=== PATIENT | female | born 1955 | race Caucasian/White ===

== ENCOUNTER 2016-09-01 19:25 | Inpatient (IN) | payer OTHER, MEDICAID ==
[~2016-09-01 19:25] MED LIST: ATORVASTATIN 10 MG TAB PO SCH
--- NOTE | 2016-09-01 20:10 | EDPRACDOC ---
- General Information Chief Complaint: Shoulder Pain Stated Complaint: SHOB Time Seen by Provider: 09/01/16 19:35 Information Source: Patient Mode of Arrival: Ambulance Home Medications: Home Medications Albuterol Sulfate [Ventolin Hfa] 1 - 2 puff INH Q4H PRN 06/10/14 Clopidogrel Bisulfate [Plavix] 75 mg PO HS 06/10/14 Doxepin HCl 50 mg PO HS 06/10/14 Fenofibrate 160 mg PO HS 06/10/14 Fluoxetine HCl [Prozac] 20 mg PO HS 06/10/14 Amlodipine Besylate [Norvasc] 10 mg PO QHS 06/22/15 Abacavir/Dolutegravir/Lamivudi [Triumeq Tablet] 1 tab PO QHS 07/25/16 Gabapentin Enacarbil [Horizant] 600 mg PO BID 07/25/16 Ondansetron [Zofran Odt] 4 mg PO Q6H #30 tab.rapdis 07/25/16 Ranitidine [Zantac] 150 mg PO BID 07/25/16 Rosuvastatin Calcium [Crestor] 10 mg PO QHS 07/25/16 Allergies/Adverse Reactions: Allergies Allergy/AdvReac Type Severity Reaction Status Date / Time morphine Allergy See Verified 07/25/16 12:04 Comments - History of Present Illness Onset: 1600 HPI: PATIENT PRESENTS C/O LEFT SIDED SHOULDER PAIN THAT RADIATES TO CHEST. NO SOB. WORSE WITH PALPATION. DENIES WORSE WITH MOVEMENT. BEGAN AT REST. NORMAL PAIN MEDICATION DOES NOT HELP. STATES SHE HAS A HX OF STENT IN ONE LEG. PLACED ON PLAVIX. PATIENT HAS HAD EPISODES OF VOMITING FOR WEEKS. STOPPED B/P MEDS AND PLAVIX 1 MONTH AGO. Description: Reports: At Rest Location: Reports: Left, Anterior Circumstances: Reports: No Trauma Relevant History: Reports: None Tetanus Up To Date?: Yes Dominant Hand: Right Pain Severity: Mild Able to Move Shoulder?: Yes Associated Signs & Symptoms: Reports: Chest pain - Treatment Prior to ED Arrival Reported Medications/Treatment [facility] Treatment BLS ED Past Medical History - History Reviewed Yes Nurses notes reviewed and agree except as marked Travel Outside of [place] in the Last 3 Months?: No - Patient Medical History Neurological History: Reports: Seizures (last one- October 2012) Cardiac History: Reports: Hypertension, Hypercholesterolemia Respiratory History: Reports: Asthma, COPD GI/ History: Reports: Renal Disease Psychological History: Reports: Depression, Bipolar Disorder. Denies: Substance Use Disorder Systemic History: Reports: HIV (see note below). Denies: Cancer Surgical History: Reports: Tonsillectomy/Adnoidectomy - Family Medical History Reports: Cardiac Disorders. Denies: Cancer (negative for colon cancer) - Social Medical History Smoking Status: Heavy tobacco smoker (5 or more cigarettes/day or daily pipe/ cigar) Social History: Denies: Substance Use Disorder Lives With: Family Lives In: Home EDM Review of Systems - Review of Systems ROS Negative Except as Marked: Yes All systems reviewed and were negative except as marked Constitutional: No Symptoms Reported. negative: Fever, Chills, Weakness, Fatigue, Loss of Appetite Eyes: No Symptoms Reported. negative: Redness, Blurred Vision, Double Vision, Discharge, Pain, Light Sensitive, Photophobia Ears: No Symptoms Reported. negative: Pain, Hearing Loss, Drainage, Ear Pulling Throat: No Symptoms Reported. negative: Pain, Swelling Nose: No Symptoms Reported. negative: Congestion, Bleeding, Discharge, Injection, Swelling, Deformity, Ecchymosis, Tender, Abrasion, Laceration Mouth: No Symptoms Reported. negative: Pain, Drooling Respiratory: No Symptoms Reported. negative: Cough, Brassy Cough, Barky Cough, Shortness of Breath, Wheezing, Hemoptysis Cardiovascular: Chest Pain. negative: Cyanosis, Edema, Orthopnea, Palpitations , PND, Syncope, Skin Mottling Gastrointestinal: No Symptoms Reported. negative: Pain, Constipation, Nausea, Vomiting, Diarrhea, Melena, Formula Intolerance Genitourinary: No Symptoms Reported. negative: Dysuria, Hematuria, Frequency, Discharge, Bleeding, Testicular Pain, Neurological: No Symptoms Reported. negative: Headache, Dizziness, Seizure, Numbness, Weakness, Speech Difficulty, Gait Difficulty Musculoskeletal: No Symptoms Reported. negative: Neck, Chestwall, Ribs, Back, Shoulder, Arm, Elbow, Forearm, Wrist, Hand, Pelvis, Hip, Femur, Knee, Leg, Ankle , Foot Integumentary: No Symptoms Reported. negative: Itching, Rash, Bruising, Wound Allergic/Immunologic: No Symptoms Reported. negative: Hives, Itching Hematologic: No Symptoms Reported. negative: Lymphadenopathy, Easy Bruising, Easy Bleeding Endocrine: No Symptoms Reported. negative: Weight Gain, Weight Loss Psychiatric: No Symptoms Reported. negative: Anxiety, Depression, Hallucinations, Insomnia, Suicidal - Physical Exam Constitutional: Alert (Awake), Distress (MODERATE) Oriented to: Time, Person, Place Last recorded Vital Signs: Last Vital Signs Temp 98.2 F 09/01/16 19:42 Pulse 96 09/01/16 19:42 Resp 20 09/01/16 19:42 BP 160/100 09/01/16 19:42 Pulse Ox 95 09/01/16 19:42 Oxygen Pulse Oxygen Saturation 95 O2 Device Room Air Oxygen Flow Rate Fraction of Inspired Oxygen ( FIO2) - HEENT Head: Normal ( normocephalic) Eye Exam: Normal (PERRL, EOMI, Sclera white) Oropharynx: Normal (Pharynx:Moist without exudate,Gums-no swelling) Tympanic Membrane: Normal ENT EAC: Normal TMJ: Normal Nose: No Symptoms Reported (septum midline) Neck: Normal (FROM, trachea at midline) - Respiratory/Cardiovascular Respiratory: Normal - CTA (BBS clear to auscultation without adventitious sounds ) Cardiovascular: Tachycardia - GI Auscultation: Normal (NABS) Palpation: Normal (Soft,No rebound or guarding, non distended) Tenderness: Non tender Weiner's Sign: Negative - Bladder: Normal - Musculoskeletal Back: Normal (Non-Tender) Extremities: Normal (Normal tone, Pulses 2+ No cyanosis or edema, FROM) - Integumentary Skin: Normal, Warm, Dry Lymphatics: Normal (no adenopathy) - Neurologic Memory Impaired: Normal Motor Function: Normal (Normal tone, Pulses 2+ No cyanosis or edema, FROM) Cranial Nerve: Normal (CN II-X11 intact sensation, strength 5/5) Cerebellar: Normal Mood Description: Anxious Thought: Coherent Perception: Normal - Results 09/01/16 20:25 09/01/16 20:25 - EKG EKG #1 EKG Time: 19:57 -: Yes EKG interpreted by me Rate: bpm: 79 [place]: Normal Rhythm: NSR Block: None Hypertrophy: None ST: Inf, Ischemia (ST DEPRESSION INFERIOR) - Departure Yes I personally saw and evaluated the patient. Disposition: Admit IP To This Hospital Condition: Stable Final Diagnosis: Non-STEMI (non-ST elevated myocardial infarction) Education/Counseling Given To: Patient Education/Counseling Given Regarding: Diagnosis, Treatment, Prognosis Referrals: Kerry Pelayo PA [Primary Care Provider] - One Week Prescriptions: No Action Fluoxetine HCl [Prozac] 20 mg PO HS Doxepin HCl 50 mg PO HS Clopidogrel Bisulfate [Plavix] 75 mg PO HS Albuterol Sulfate [Ventolin Hfa] 1 - 2 puff INH Q4H PRN PRN Reason: SHORTNESS OF BREATH Fenofibrate 160 mg PO HS Amlodipine Besylate [Norvasc] 10 mg PO QHS Rosuvastatin Calcium [Crestor] 10 mg PO QHS Ranitidine [Zantac] 150 mg PO BID Gabapentin Enacarbil [Horizant] 600 mg PO BID Abacavir/Dolutegravir/Lamivudi [Triumeq Tablet] 1 tab PO QHS Ondansetron [Zofran Odt] 4 mg PO Q6H #30 tab.enedinadis Decision to Admit Time: 21:05 Decision to admit date: 09/01/16 Decision to admit: from ED - Physician Consulted Cardiology Time Called: 21:06 Provider Called: Viktor Hooker Time Heavy Truck Technician Returned Call: 21:06
[2016-09-01 20:35] LABS: AUTOMATED BASOPHIL 0.7 % (0-2); AUTOMATED EOSINOPHIL 0.8 % (0-5); AUTOMATED LYMPH 14.9 % (17-44); AUTOMATED MONOCYTE 4.4 % (3-10); AUTOMATED NEUTROPHIL 79.2 % (45-76); MPV 10.3 fL (7.4-10.4)
[2016-09-01 20:49] LABS: PARTIAL THROMB. TIME 29.3 SEC (22-35); PT-INR 1.2
[2016-09-01 20:50] LABS: BLOOD UREA NITROGEN 13 MG/DL (7-17); CALCIUM 9.2 MG/DL (8.4-10.2); CALCULATED OSMOLALITY 269 MOs/Kg (270-290); CHLORIDE 106 mEq/L (98-107); GLUCOSE 117 MG/DL (70-99); SODIUM LEVEL 139 mEq/L (137-146); TOTAL PROTEIN 7.7 G/DL (6.3-8.2)
--- NOTE | 2016-09-01 20:58 | DIRPT ---
CLINICAL DATA: Shortness of breath. EXAM: PORTABLE CHEST - 1 VIEW COMPARISON: Chest and rib radiographs 04/05/2015. FINDINGS: The heart is enlarged. Asymmetric interstitial prominence on the right likely reflects edema. There no definite effusions. No focal airspace consolidation is present. The visualized soft tissues and bony thorax are unremarkable. IMPRESSION: 1. Cardiomegaly and edema suggesting congestive heart failure. 2. No focal airspace consolidation. Electronically Signed By: Roque Segura M.D. On: 09/01/2016 20:55
[2016-09-01] MEDS ORDERED: ENOXAPARIN 100 MG PFS SQ ONE (21:09)
[2016-09-01] MEDS ORDERED: ASPIRIN (CHEWABLE) 81 MG TAB PO ONE (21:09)
[2016-09-01] MEDS ORDERED: METOPROLOL TARTRATE 25 MG TAB PO ONE (21:10)
[2016-09-01 21:48] LABS: ALL NEG? NO
[2016-09-01] MEDS: NITROGLYCERINE 0.4 MG TAB SL SCH ×3 (21:52→22:18)
--- NOTE | 2016-09-01 21:53 | PCM.CARDCO ---
Consultation Date: 09/01/16 Requesting Physician: Spencer Giraldo Fiber Optic Assembler: Viktor Hooker Consult Reason: Chest Pain - History of Present Illness Patient is a 60 years old woman HIV positive with COPD who presented to the hospital today with chief complaint of weakness and left shoulder pain. Pain is worse with moving or shorter she did not allowed me to touch her shoulder because so painful she does have quite significant electrocardiographic changes however I was able to pull out her electrocardiogram from 2 years ago and does a looking very similar. Interestingly her troponin I became abnormal and that is why my valve when she was called. Again pain that she described look completely noncardiac is located in left shoulder worse with pressing the shoulder worse when moving her shoulder. There is no injury to this area there is no skin changes. She never had any heart trouble however many years ago she did have stent placed in the right lower extremities because of some narrowing. She continues to smoke. She quit drinking alcohol and she quit using cocaine in 2012. She smokes half to 1 pack per day. Her ability to exercise is limited because of chronic back problem in the matter of fact just couple weeks ago she was in our emergency room because of back problem. - Past Medical and Surgical History Cardiac History: Reports: Hypertension, Hypercholesterolemia, Other Respiratory History: Reports: Asthma, COPD GI/ History: Reports: Renal Disease Systemic History: Reports: HIV (see note below). Denies: Cancer Psychological History: Reports: Depression, Bipolar Disorder. Denies: Substance Use Disorder Neurological History: Reports: Seizures (last one- October 2012) Past Surgical History: Reports: Tonsillectomy/Adnoidectomy Allergies morphine Allergy (Verified 07/25/16 12:04) See Comments Home Medications Albuterol Sulfate [Ventolin Hfa] 1 - 2 puff INH Q4H PRN 06/10/14 Clopidogrel Bisulfate [Plavix] 75 mg PO HS 06/10/14 Doxepin HCl 50 mg PO HS 06/10/14 Fenofibrate 160 mg PO HS 06/10/14 Fluoxetine HCl [Prozac] 20 mg PO HS 06/10/14 Amlodipine Besylate [Norvasc] 10 mg PO QHS 06/22/15 Abacavir/Dolutegravir/Lamivudi [Triumeq Tablet] 1 tab PO QHS 07/25/16 Gabapentin Enacarbil [Horizant] 600 mg PO BID 07/25/16 Ondansetron [Zofran Odt] 4 mg PO Q6H #30 tab.rapdis 07/25/16 Ranitidine [Zantac] 150 mg PO BID 07/25/16 Rosuvastatin Calcium [Crestor] 10 mg PO QHS 07/25/16 - Social History Travel Outside of [place] in the Last 3 Months?: No Smoking Status: Heavy tobacco smoker (5 or more cigarettes/day or daily pipe/ cigar) Social History: Denies: Substance Use Disorder - Family History Reports: Cardiac Disorders. Denies: Cancer (negative for colon cancer) - Review of Systems Constitutional: No Symptoms Reported. negative: Fever, Chills, Weakness, Fatigue, Loss of Appetite - Physical Exam Constitutional: Alert (Awake), Distress (MODERATE) Oriented to: Time, Person, Place Exam: Last Vital Signs Temp 98.2 F 09/01/16 19:42 Pulse 82 09/01/16 21:10 Resp 20 09/01/16 21:10 BP 158/73 09/01/16 21:10 Pulse Ox 94 09/01/16 21:10 Intake & Output 09/01/16 09/01/16 09/01/16 07:59 15:59 23:59 Patient's weight 67.132 kg - HEENT Head: Normal ( normocephalic) Eye: Normal (PERRL, EOMI, Sclera white) Oropharynx: Normal (Pharynx:Moist without exudate,Gums-no swelling) Tympanic Membrane: Normal ENT EAC: Normal TMJ: Normal Nose: No Symptoms Reported (septum midline) - Respiratory/Cardiovascular Respiratory: Normal - CTA (BBS clear to auscultation without adventitious sounds ) - GI Auscultation: Normal (NABS) Palpation: Normal (Soft,No rebound or guarding, non distended) Tenderness: Non tender - Musculoskeletal Back: Normal (Non-Tender) Extremities: Normal (Normal tone, Pulses 2+ No cyanosis or edema, FROM) - Integumentary Skin: Normal, Warm, Dry Lymphatics: Normal (no adenopathy) - Neurologic Memory Impaired: Normal Cerebellar: Normal Mood Description: Anxious Thought: Coherent Perception: Normal - Other Exam Other Exam Findings: General Appearance: Well developed. Well nourished. In no acute distress.Somewhat cachectic- looking Lungs: Chest was not overinflated. Clear to auscultation. Poor air entry Cardiovascular: Jugular Venous Distention: JVD not increased. Heart Rate And Rhythm: Normal. Heart Sounds: Normal. Murmurs: No murmurs were heard. Carotid Arteries: Carotid pulses were normal. No bruit in the carotid artery. Edema: Not present. Lower extremities pulses in her feet are palpable however capillary refill is decent. Musculoskeletal System: General/bilateral: No cyanosis of the fingers. Neurological: Oriented to time, place, and person. Nails: No clubbing of the fingernails. - Lab Results Laboratory Tests 09/01/16 09/01/16 09/01/16 20:25 20:25 20:25 WBC 8.7 RBC 4.71 Hgb 15.3 Hct 44.8 MCV 95 MCH 32.5 H MCHC 34.2 RDW 13.5 Plt Count 167 MPV 10.3 Neut % (Auto) 79.2 H Lymph % (Auto) 14.9 L Cherry % (Auto) 4.4 Eos % (Auto) 0.8 Baso % (Auto) 0.7 Absolute Neuts (auto) 6.87 Absolute Lymphs (auto) 1.22 PT 12.7 H INR 1.2 APTT 29.3 Sodium 139 Potassium 4.6 Chloride 106 Carbon Dioxide 21 L Anion Gap 17 H BUN 13 Creatinine 1.10 H Estimated GFR (MDRD) 51 L Glucose 117 H Calculated Osmolality 269 L Calcium 9.2 Total Bilirubin 0.6 AST 42 H ALT 20 Alkaline Phosphatase 111 Troponin I 2.61 H* Total Protein 7.7 Albumin 4.2 - Diagnostic Findings Electrocardiogram showed normal sinus rhythm left atrium enlargement, significant ST segment depression inferior lateral leads. - Assessment/Plan (1) Troponin I above reference range R79.89 - OTHER SPECIFIED ABNORMAL FINDINGS OF BLOOD CHEMISTRY Acute Present on Admission: Yes Comment: This is apprising finding. Her symptoms are very noncardiac pain in left shoulder which is worse with moving her shoulder however she does have some significant EKG changes but compared with old EKG does a very similar. I think she need to be admitted for observation clarification of this problem. I will put her on aspirin Lovenox as well as small dose of beta-jocelin. Will collect cardiac enzymes as well as troponin. Tomorrow morning to decide which way to evaluate her for coronary artery disease. Obviously if troponin I will be significantly elevated and may even cardiac catheterization will be warranted. (2) Atypical chest pain R07.89 - OTHER CHEST PAIN Acute Comment: Really very atypical in the left shoulder worse with moving her shoulder. But her troponin I is abnormal which obviously rise or concerns. (3) Smoking F17.200 - NICOTINE DEPENDENCE, UNSPECIFIED, UNCOMPLICATED Acute Comment: She must quit smoking. (4) HIV disease B20 - HUMAN IMMUNODEFICIENCY VIRUS [HIV] DISEASE Chronic Comment: Apparently she takes her medication on the regular basis she does not her CD4 cell count was 850 very slow was 50 Plan: Lady with very atypical story with abnormal EKG as baseline. Troponin I abnormal she be admitted to the hospital cardiac enzymes will be connected decision will be made in the morning which way to proceed in terms of evaluate her for coronary artery disease
[2016-09-01 21:55] LABS: MDMA* NEG (NEGATIVE); METHAMPHETAMINES NEG (NEGATIVE); OXYCODONE NEG (NEGATIVE)
[2016-09-01] MEDS ORDERED: NITROGLYCERINE 0.4 MG TAB SL PRN ×2 (21:58→23:51)
[2016-09-01] MEDS ORDERED: Pharmacy Order Set Alert SCH (22:00)
--- NOTE | 2016-09-01 23:52 | HISTPHYS ---
- Chief Complaint chest and shoulder pain - History of Present Illness PRIMARY CARE PROVIDER: Kerry Pelayo HPI: The patient is a 50-year-old woman with COPD, HIV, hypertension, hyperlipidemia who presents with chest and shoulder pain along with shortness of breath. She has had severe nausea and vomiting lately, and is having trouble keeping anything down. Onset: Duration: intermittent. Location: Left chest and substernal. Radiation: left shoulder. Character: 05/13. Heaviness. Alleviated by: Nothing. Exacerbated by: Nothing. Associated Symptoms: Shortness of breath. Left shoulder pain. Palpitations. Cough and wheezing intermittently. Has had abdominal pain (epigastric), nausea, vomiting, diarrhea. No constipation or bloody stool. Treatments: none at home except usual medications. - Medical History Cardiac History: Reports: Hypertension, Hypercholesterolemia (and peripheral arterial disease - required stent - aorto-femoral bypass), Other Respiratory History: Reports: Asthma, COPD GI/ History: Reports: Renal Disease Systemic History: Reports: HIV (see note below). Denies: Cancer Neurological History: Reports: Seizures (last one- October 2012) Psychological History: Reports: Depression, Bipolar Disorder. Denies: Substance Use Disorder - Surgical History Reports: Tonsillectomy/Adnoidectomy, Other (Aorto-femoral bypass due to peripheral arterial disease in leg.) - Medictions/Allergies Allergies morphine Allergy (Verified 07/25/16 12:04) See Comments Current Medication List: Reviewed Home Medications Albuterol Sulfate [Ventolin Hfa] 1 - 2 puff INH Q4H PRN 06/10/14 Clopidogrel Bisulfate [Plavix] 75 mg PO HS 06/10/14 Doxepin HCl 50 mg PO HS 06/10/14 Fenofibrate 160 mg PO HS 06/10/14 Fluoxetine HCl [Prozac] 20 mg PO HS 06/10/14 Amlodipine Besylate [Norvasc] 10 mg PO QHS 06/22/15 Abacavir/Dolutegravir/Lamivudi [Triumeq Tablet] 1 tab PO QHS 07/25/16 Gabapentin Enacarbil [Horizant] 600 mg PO BID 07/25/16 Ondansetron [Zofran Odt] 4 mg PO Q6H #30 tab.rapdis 07/25/16 Ranitidine [Zantac] 150 mg PO BID 07/25/16 Rosuvastatin Calcium [Crestor] 10 mg PO QHS 07/25/16 - Family History Reports: Cardiac Disorders. Denies: Cancer (negative for colon cancer) - Social History Travel Outside of [place] in the Last 3 Months?: No Smoking Status: Heavy tobacco smoker (5 or more cigarettes/day or daily pipe/ cigar) Social History: Denies: Alcohol Use, Substance Use Disorder - Review of Systems GENERAL: No Fever, chills, or diaphoresis. Positive for fatigue/malaise. HEENT: No nasal discharge or bleeding. No throat pain or swelling. No eye pain or eye redness. RESPIRATORY: Occasional cough, wheezing. Positive for shortness of breath. CARDIOVASCULAR: Chest pain and palpitations. GI: Has had abdominal pain (epigastric), nausea, vomiting, diarrhea. No constipation or bloody stool. NEUROLOGICAL: No headache or focal weakness. INTEGUMENT: no rashes, itching, or lesions. LYMPHATIC SYSTEM: no lymph node swelling or pain. MUSCULOSKELETAL: Joint pains including L shoulder. No joint swelling. GENITOURINARY: No dysuria or hematuria. ENDOCRINE: No polyuria or polydipsia. HEME: No chronic anemia, bleeding, or easy bruising. - Physical Exam Vital Signs: Initial Vitals Temperature 98.2 F 09/01/16 19:42 Pulse Rate 96 09/01/16 19:42 Respiratory Rate 20 09/01/16 19:42 Blood Pressure 160/100 09/01/16 19:42 Pulse Oxygen Saturation 95 09/01/16 19:42 - Other Exam Other Exam Findings: GENERAL: Ill-appearing, well nourished, in acute distress. HEENT: Normocephalic, atraumatic; pupils equal and round. Nares patent, without discharge or bleeding. No oropharyngeal lesions or erythema. Mucous membranes are dry. NECK: is supple, no masses, trachea midline. RESPIRATORY: Clear to auscultation bilaterally. Chest wall movements are symmetric. No use of accessory muscles to breathe. Intermittent tachypnea. Wheezing. No rales, rhonchi. Tenderness to palpation of left chest wall. CARDIOVASCULAR: Normal S1, S2. No rubs, or gallops. PMI non-displaced. Carotids : no carotid bruits. No bradycardia or tachycardia. DP pulses 1-2+ bilaterally. GI: soft, non-distended, normal active bowel sounds. No hepatosplenomegaly. Mild epigastric tenderness. INTEGUMENT: Clean, dry, and intact. No rashes. MUSCULOSKELETAL: Moving all extremities. No cyanosis. Clubbing. Edema: none bilaterally. Tenderness to palpation of left shoulder. NEUROLOGICAL: Cranial nerves 2-12 grossly intact. Motor 4/5 throughout. Reflexes : 2+ bilaterally. Babinski: toes downgoing bilaterally. Intact Finger to nose. Sensory grossly intact to light touch. Intact rapid alternating movements bilaterally. No pronator drift. PSYCHIATRIC: Fully oriented. Anxious affect. LYMPHATIC: No cervical lymphadenopathy. No supraclavicular lymphadenopathy. - Lab Results Laboratory Tests 09/01/16 09/01/16 09/01/16 20:25 20:25 20:25 WBC 8.7 RBC 4.71 Hgb 15.3 Hct 44.8 MCV 95 MCH 32.5 H MCHC 34.2 RDW 13.5 Plt Count 167 MPV 10.3 Neut % (Auto) 79.2 H Lymph % (Auto) 14.9 L [place] % (Auto) 4.4 Eos % (Auto) 0.8 Baso % (Auto) 0.7 Absolute Neuts (auto) 6.87 Absolute Lymphs (auto) 1.22 PT 12.7 H INR 1.2 APTT 29.3 Sodium 139 Potassium 4.6 Chloride 106 Carbon Dioxide 21 L Anion Gap 17 H BUN 13 Creatinine 1.10 H Estimated GFR (MDRD) 51 L Glucose 117 H Calculated Osmolality 269 L Calcium 9.2 Total Bilirubin 0.6 AST 42 H ALT 20 Alkaline Phosphatase 111 Creatine Kinase CK-MB (CK-2) CK-MB (CK-2) Rel Index Troponin I 2.61 H* Total Protein 7.7 Albumin 4.2 Triglycerides Cholesterol LDL Cholesterol, Calc VLDL Cholesterol, Calc HDL Cholesterol Cholesterol/HDL Ratio Urine Opiates Screen Ur Oxycodone Screen Urine Methadone Screen Ur Barbiturates Screen Ur Tricyclics Screen Ur Phencyclidine Scrn Ur Amphetamines Screen U Methamphetamines Scrn Urine MDMA Screen U Benzodiazepines Scrn Urine Cocaine Screen Ur THC Screen 09/01/16 09/01/16 21:43 23:48 WBC RBC Hgb Hct MCV MCH MCHC RDW Plt Count MPV Neut % (Auto) Lymph % (Auto) [place] % (Auto) Eos % (Auto) Baso % (Auto) Absolute Neuts (auto) Absolute Lymphs (auto) PT INR APTT Sodium Potassium Chloride Carbon Dioxide Anion Gap BUN Creatinine Estimated GFR (MDRD) Glucose Calculated Osmolality Calcium Total Bilirubin AST ALT Alkaline Phosphatase Creatine Kinase CK-MB (CK-2) CK-MB (CK-2) Rel Index Troponin I 11.00 H* D Total Protein Albumin Triglycerides Cholesterol LDL Cholesterol, Calc VLDL Cholesterol, Calc HDL Cholesterol Cholesterol/HDL Ratio Urine Opiates Screen Neg Ur Oxycodone Screen Neg Urine Methadone Screen Neg Ur Barbiturates Screen Neg Ur Tricyclics Screen *positive* H Ur Phencyclidine Scrn Neg Ur Amphetamines Screen Neg U Methamphetamines Scrn Neg Urine MDMA Screen Neg U Benzodiazepines Scrn Neg Urine Cocaine Screen Neg Ur THC Screen Neg - Diagnostic Findings EK bpm. Normal sinus rhythm. Marked ST abnormality, possible inferior subendocardial injury. ST depressions with T wave inversions in 2, 3, aVF, V3, V4, and V5. ST depressions in V2 and V6. Reviewed EKG personally. Chest x-ray, viewed personally: EXAM: PORTABLE CHEST - 1 VIEW COMPARISON: Chest and rib radiographs 04/05/2015. FINDINGS: The heart is enlarged. Asymmetric interstitial prominence on the right likely reflects edema. There no definite effusions. No focal airspace consolidation is present. The visualized soft tissues and bony thorax are unremarkable. IMPRESSION: 1. Cardiomegaly and edema suggesting congestive heart failure. 2. No focal airspace consolidation. - Assessment (1) Non-STEMI (non-ST elevated myocardial infarction) I21.4 - NON-ST ELEVATION (NSTEMI) MYOCARDIAL INFARCTION Acute Present on Admission: Yes (2) Nausea and vomiting R11.2 - NAUSEA WITH VOMITING, UNSPECIFIED Acute Present on Admission: Yes Qualifiers: Vomiting type: bilious vomiting Vomiting Intractability: V Qualified Code (s): R11.14 - Bilious vomiting (3) Shoulder pain, left M25.512 - PAIN IN LEFT SHOULDER Acute Present on Admission: Yes Qualifiers: Chronicity: acute Qualified Code(s): M25.512 - Pain in left shoulder (4) COPD (chronic obstructive pulmonary disease) J44.9 - CHRONIC OBSTRUCTIVE PULMONARY DISEASE, UNSPECIFIED Acute Present on Admission: Yes Qualifiers: COPD type: chronic bronchitis Chronic bronchitis type: simple Emphysema type: E Qualified Code(s): J41.0 - Simple chronic bronchitis (5) HIV disease B20 - HUMAN IMMUNODEFICIENCY VIRUS [HIV] DISEASE Chronic Present on Admission: Yes - Plan (1) Non-STEMI (non-ST elevated myocardial infarction) I21.4 - NON-ST ELEVATION (NSTEMI) MYOCARDIAL INFARCTION Acute Plan: Dr. Hooker has consulted on patient. Lovenox q 12 hours. Beta jocelin. JASE. Statin. Telemetry. Follow troponin levels. (2) Nausea and vomiting R11.2 - NAUSEA WITH VOMITING, UNSPECIFIED Acute Qualifiers: Vomiting type: V Vomiting Intractability: V Severe at times. Plan: PRN Zofran or phenergan. (3) Shoulder pain, left M25.512 - PAIN IN LEFT SHOULDER Acute Qualifiers: Chronicity: C Shoulder pain is in addition to the chest pain behind her her NSTEMI. Plan: PRN medications. (4) COPD (chronic obstructive pulmonary disease) J44.9 - CHRONIC OBSTRUCTIVE PULMONARY DISEASE, UNSPECIFIED Acute Qualifiers: COPD type: C Chronic bronchitis type: C Emphysema type: E No acute exacerbation at this time. Plan: Scheduled Duoneb. (5) HIV disease B20 - HUMAN IMMUNODEFICIENCY VIRUS [HIV] DISEASE Chronic Plan: Continue home medication. Case Care Discussed with: Patient, Nursing Staff
[2016-09-02] MEDS ORDERED: HYDROmorphone 1 MG INJECTION IV PRN (00:26)
[2016-09-02] MEDS ORDERED: HYDROmorphone 1 MG INJECTION IV ONE (00:26)
[2016-09-02] MEDS ORDERED: BENZONATATE 100 MG PERLES PO PRN (00:28)
[2016-09-02] MEDS ORDERED: BISACODYL 5 MG TAB PO PRN (00:28)
[2016-09-02] MEDS ORDERED: ONDANSETRON HCL 4 MG/2 ML VIAL IV PRN (00:28)
[2016-09-02] MEDS ORDERED: GUAIFEN 100 MG-DEXTROMETH 10 MG PER 5 ML PO PRN (00:28)
[2016-09-02] MEDS ORDERED: ACETAMINOPHEN 325 MG/TAB TABLET PO PRN (00:28)
[2016-09-02] MEDS ORDERED: TEMAZEPAM 15 MG CAP PO PRN (00:28)
[2016-09-02] MEDS ORDERED: Aluminum;Magnesium;Simethicone 30 ML UDC PO PRN (00:28)
[2016-09-02] MEDS ORDERED: SENNA CONCENTRATE TAB PO PRN (00:28)
[2016-09-02] MEDS ORDERED: ACETAMINOPHEN 325 MG SUPP PR PRN (00:28)
[2016-09-02] MEDS ORDERED: PROMETHAZINE 25 MG/ML VIAL IV PRN (00:28)
[2016-09-02] MEDS ORDERED: GABAPENTIN ENACARBIL 600 MG PO SCH (00:30)
[2016-09-02] MEDS ORDERED: ROSUVASTATIN CALCIUM 20 MG PO SCH (00:30)
[2016-09-02] MEDS ORDERED: Nitroglycerin D5W 50,000 MCG/250 ML IVBOT IV SCH (01:00)
[2016-09-02] MEDS ORDERED: Pharmacy Order Set Alert SCH (01:00)
[2016-09-02] MEDS ORDERED: FLUOXETINE 20 MG CAP PO SCH (01:00)
[2016-09-02] MEDS ORDERED: CLOPIDOGREL 75 MG TAB PO SCH (01:00)
[2016-09-02] MEDS ORDERED: LISINOPRIL 5 MG TAB PO SCH (01:00)
[2016-09-02] MEDS ORDERED: ROSUVASTATIN 10 MG TAB PO SCH (01:00)
[2016-09-02] MEDS ORDERED: ALBUTEROL 0.083% 3 ML NEB NEB PRN (01:36)
[2016-09-02] MEDS: NITROGLYCERINE 2 % OINTMENT PACK TOP SCH ×2 (01:37→05:52)
[2016-09-02 01:50] VITALS: BMI 23.4
[2016-09-02] MEDS: Albuterol/Ipratropium Neb 3 ML NEB NEB SCH ×2 (03:01→08:15)
[2016-09-02] MEDS: RANITIDINE 150 MG TAB PO SCH ×2 (03:48→08:26)
[2016-09-02] MEDS ORDERED: GABAPENTIN 300 MG CAP PO SCH (06:00)
[2016-09-02 07:42] LABS: CPKMB 94.6 ng/mL (0-4.5); CPKMB RELATIVE INDEX 9.7 (0.0-2.2)
[2016-09-02] MEDS ORDERED: ASPIRIN (CHEWABLE) 81 MG TAB PO SCH (08:00)
[2016-09-02 08:02] LABS: LDL (calc.) 117.6 MG/DL (<100); VLDL (calc.) 54.4 MG/DL (5-40)
--- NOTE | 2016-09-02 08:58 | PCM.CARD ---
- Subjective Reason for visit: f/u acute NSTEMI Subj: Pt is pain free this AM, denies SOB, nausea. Adamant at first that she wants to eat and go home. Pt's dx of acute HI, pathophys, risk of life-threatening stuttering infarction or infarct extension discussed. Pt accepts advice for transfer to for cath/poss PCI. Risks of HI/arrest/CVA 08/999 and vessel damage/bleed discussed. "Just get it over with". Vital Signs: Last Vital Signs Temp 98.2 F 09/02/16 07:12 Pulse 73 09/02/16 07:12 Resp 22 09/02/16 07:12 BP 126/64 09/02/16 07:12 Pulse Ox 85 L 09/02/16 07:12 PE: Physical Exam GEN: thin age appropriate, in NAD. VS: as above HEENT: raspy smoker's voice. Multiple absent teeth. Neck supple, carotids 2+ bilat CHEST: clear, no active wheezing or exp prolongation. No rales. COR: RR, Gr 2/6 CHER, no MR murmur. No s3 or rub ABD: non-tender, no distention EXTREM: rad 2= bilat PT 1+ bilat, no edema or clubbing SKIN: warm, dry NEURO: alert, oriented. Speech normal, no focal motor deficit. Lab/DI Results Reviewed: Laboratory Tests 09/01/16 09/01/16 09/02/16 20:25 23:48 03:00 WBC Hgb Hct Plt Count Sodium 139 Potassium 4.6 Chloride 106 Carbon Dioxide 21 L BUN 13 Creatinine 1.10 H Total Bilirubin 0.6 AST 42 H ALT 20 Alkaline Phosphatase 111 Creatine Kinase CK-MB (CK-2) Troponin I 2.61 H* 11.00 H* D 21.50 H* D Triglycerides Cholesterol LDL Cholesterol, Calc HDL Cholesterol 09/02/16 09/02/16 09/02/16 06:47 06:47 06:47 WBC 8.9 Hgb 15.7 Hct 46.2 Plt Count 170 Sodium Potassium Chloride Carbon Dioxide BUN Creatinine Total Bilirubin AST ALT Alkaline Phosphatase Creatine Kinase 978 H CK-MB (CK-2) 94.6 H Troponin I 31.20 H* D Triglycerides 272 H Cholesterol 208 H LDL Cholesterol, Calc 117.6 H HDL Cholesterol 36.0 L EKG: NSR. 2-[address] depression V2-V5, small Q in III and avF, inferior T inversion tele: NSR IMPRESSION: acute non-STEMI, ? true posterolateral HI. Hemodynamically stable PVD, smoking, hyperlipidemia. - Plan PLAN: maintain NPO. Transfer to [facility] for cath /poss PCI anticipate outpt f/u with Dr. Hooker and PCP.
[2016-09-02] MEDS ORDERED: METOPROLOL TARTRATE 25 MG TAB PO SCH (09:00)
--- NOTE | 2016-09-02 09:35 | PCM.DCS92 ---
- Final/Secondary Discharge Diagnosis (1) Non-STEMI (non-ST elevated myocardial infarction) Acute I21.4 - NON-ST ELEVATION (NSTEMI) MYOCARDIAL INFARCTION Present on Admission: Yes (2) Nausea and vomiting Acute R11.2 - NAUSEA WITH VOMITING, UNSPECIFIED Present on Admission: Yes bilious vomiting V R11.14 - Bilious vomiting (3) Shoulder pain, left Acute M25.512 - PAIN IN LEFT SHOULDER Present on Admission: Yes acute M25.512 - Pain in left shoulder (4) COPD (chronic obstructive pulmonary disease) Acute J44.9 - CHRONIC OBSTRUCTIVE PULMONARY DISEASE, UNSPECIFIED Present on Admission: Yes chronic bronchitis simple E J41.0 - Simple chronic bronchitis (5) HIV disease Chronic B20 - HUMAN IMMUNODEFICIENCY VIRUS [HIV] DISEASE Present on Admission: Yes Discharge Disposition: Trans. to Other Hospital Discharge Condition: Stable Cognitive Discharge Status: Unimpaired Fuctional Discharge Status: Independent Physician Follow up/Referrals: Kerry Pelayo PA [Primary Care Provider] - One Week Home Medications / New Prescriptions: No Action Fluoxetine HCl [Prozac] 20 mg PO HS Doxepin HCl 50 mg PO HS Clopidogrel Bisulfate [Plavix] 75 mg PO HS Albuterol Sulfate [Ventolin Hfa] 1 - 2 puff INH Q4H PRN PRN Reason: SHORTNESS OF BREATH Fenofibrate 160 mg PO HS Amlodipine Besylate [Norvasc] 10 mg PO QHS Rosuvastatin Calcium [Crestor] 10 mg PO QHS Ranitidine [Zantac] 150 mg PO BID Gabapentin Enacarbil [Horizant] 600 mg PO BID Abacavir/Dolutegravir/Lamivudi [Triumeq Tablet] 1 tab PO QHS Ondansetron [Zofran Odt] 4 mg PO Q6H #30 tab.rapdis Home Medications Albuterol Sulfate [Ventolin Hfa] 1 - 2 puff INH Q4H PRN 06/10/14 Clopidogrel Bisulfate [Plavix] 75 mg PO HS 06/10/14 Doxepin HCl 50 mg PO HS 06/10/14 Fenofibrate 160 mg PO HS 06/10/14 Fluoxetine HCl [Prozac] 20 mg PO HS 06/10/14 Amlodipine Besylate [Norvasc] 10 mg PO QHS 06/22/15 Abacavir/Dolutegravir/Lamivudi [Triumeq Tablet] 1 tab PO QHS 07/25/16 Gabapentin Enacarbil [Horizant] 600 mg PO BID 07/25/16 Ondansetron [Zofran Odt] 4 mg PO Q6H #30 tab.rapdis 07/25/16 Ranitidine [Zantac] 150 mg PO BID 07/25/16 Rosuvastatin Calcium [Crestor] 10 mg PO QHS 07/25/16 O2 Device: Room Air Diet at Discharge: Heart Healthy Activity: As Tolerated Call Office For: Worsening Symptoms, Wound is Draining Pus, Fever over 101 F - DC Summary Notes HPI/Notes: Patient is a 60 years old woman HIV positive with COPD who presented to the hospital today with chief complaint of weakness and left shoulder pain. Pain is worse with moving or shorter she did not allowed me to touch her shoulder because so painful she does have quite significant electrocardiographic changes however I was able to pull out her electrocardiogram from 2 years ago and does a looking very similar. Interestingly her troponin I became abnormal and that is why my valve when she was called. Again pain that she described look completely noncardiac is located in left shoulder worse with pressing the shoulder worse when moving her shoulder. There is no injury to this area there is no skin changes. She never had any heart trouble however many years ago she did have stent placed in the right lower extremities because of some narrowing. She continues to smoke. She quit drinking alcohol and she quit using cocaine in 2012. She smokes half to 1 pack per day. Her ability to exercise is limited because of chronic back problem in the matter of fact just couple weeks ago she was in our emergency room because of back problem. Hospital Course Note:: Discharge summary on patient named KASSIE NUNEZ admitted to [facility] on 09/01/16 by Jerry Obando MD. Date of discharge is This is an unfortunate 60-year-old female who presented to our facility with chest pain that radiated to the shoulder. She was seen by Cardiology and admitted to our service. Her troponins were positive highest being 31 and she is being transferred to [facility] for cardiac catheterization. Patient does have a past medical history significant for CHRONIC OBSTRUCTIVE PULMONARY DISEASE in HIV disease. Her nausea vomiting which was present on admission has somewhat resolved. At this point she has reached maximum benefit of hospitalization at our facility will transfer to [facility] for further evaluation and management.. Total Time: 45 min - Physical Exam Vital Signs: Last Vital Signs Temp 98.2 F 09/02/16 07:12 Pulse 71 09/02/16 09:00 Resp 22 09/02/16 07:12 BP 126/64 09/02/16 07:12 Pulse Ox 85 L 09/02/16 07:12 Oxygen Pulse Oxygen Saturation 85 O2 Device Room Air Oxygen Flow Rate 2 Fraction of Inspired Oxygen ( FIO2) Constitutional: Alert (Awake), Distress (MODERATE) Oriented to: Time, Person, Place - HEENT Head: Normal ( normocephalic) Eye: Normal (PERRL, EOMI, Sclera white) Oropharynx: Normal (Pharynx:Moist without exudate,Gums-no swelling) Nose: No Symptoms Reported (septum midline) - Respiratory/Cardiovascular Respiratory: Normal - CTA (BBS clear to auscultation without adventitious sounds ) Cardiovascular: Normal (RRR , Normal S1, S2. No murmurs, rubs, or gallops. PMI non-displaced. Carotids: no carotid bruits. No bradycardia or tachycardia. DP pulses 2+ bilaterally.) - GI Auscultation: Normal (NABS) Palpation: Normal (Soft,No rebound or guarding, non distended) Tenderness: Non tender - Musculoskeletal Back: Normal (Non-Tender) Extremities: Normal (Normal tone, Pulses 2+ No cyanosis or edema, FROM) - Integumentary Skin: Normal, Warm, Dry Lymphatics: Normal (no adenopathy) - Neurologic Memory Impaired: Normal Motor Function: Normal (Motor 5/5 throughout.Normal tone, Pulses 2+ No cyanosis or edema, FROM) Cranial Nerve: Normal (CN II-XII intact sensation, strength 5/5) Cerebellar: Normal Mood Description: Anxious Thought: Coherent Perception: Normal - Other Exam Other Exam Findings: Laboratory Results - last 24 hr 09/01/16 09/01/16 09/01/16 20:25 20:25 20:25 WBC 8.7 RBC 4.71 Hgb 15.3 Hct 44.8 MCV 95 MCH 32.5 H MCHC 34.2 RDW 13.5 Plt Count 167 MPV 10.3 Neut % (Auto) 79.2 H Lymph % (Auto) 14.9 L [place] % (Auto) 4.4 Eos % (Auto) 0.8 Baso % (Auto) 0.7 Absolute Neuts (auto) 6.87 Absolute Lymphs (auto) 1.22 PT 12.7 H INR 1.2 APTT 29.3 Sodium 139 Potassium 4.6 Chloride 106 Carbon Dioxide 21 L Anion Gap 17 H BUN 13 Creatinine 1.10 H Estimated GFR (MDRD) 51 L Glucose 117 H Calculated Osmolality 269 L Calcium 9.2 Total Bilirubin 0.6 AST 42 H ALT 20 Alkaline Phosphatase 111 Creatine Kinase CK-MB (CK-2) CK-MB (CK-2) Rel Index Troponin I 2.61 H* Total Protein 7.7 Albumin 4.2 Triglycerides Cholesterol LDL Cholesterol, Calc VLDL Cholesterol, Calc HDL Cholesterol Cholesterol/HDL Ratio Urine Opiates Screen Ur Oxycodone Screen Urine Methadone Screen Ur Barbiturates Screen Ur Tricyclics Screen Ur Phencyclidine Scrn Ur Amphetamines Screen U Methamphetamines Scrn Urine MDMA Screen U Benzodiazepines Scrn Urine Cocaine Screen Ur THC Screen 09/01/16 09/01/16 09/02/16 21:43 23:48 03:00 WBC RBC Hgb Hct MCV MCH MCHC RDW Plt Count MPV Neut % (Auto) Lymph % (Auto) [place] % (Auto) Eos % (Auto) Baso % (Auto) Absolute Neuts (auto) Absolute Lymphs (auto) PT INR APTT Sodium Potassium Chloride Carbon Dioxide Anion Gap BUN Creatinine Estimated GFR (MDRD) Glucose Calculated Osmolality Calcium Total Bilirubin AST ALT Alkaline Phosphatase Creatine Kinase CK-MB (CK-2) CK-MB (CK-2) Rel Index Troponin I 11.00 H* D 21.50 H* D Total Protein Albumin Triglycerides Cholesterol LDL Cholesterol, Calc VLDL Cholesterol, Calc HDL Cholesterol Cholesterol/HDL Ratio Urine Opiates Screen Neg Ur Oxycodone Screen Neg Urine Methadone Screen Neg Ur Barbiturates Screen Neg Ur Tricyclics Screen *positive* H Ur Phencyclidine Scrn Neg Ur Amphetamines Screen Neg U Methamphetamines Scrn Neg Urine MDMA Screen Neg U Benzodiazepines Scrn Neg Urine Cocaine Screen Neg Ur THC Screen Neg 09/02/16 09/02/16 09/02/16 06:47 06:47 06:47 WBC 8.9 RBC 4.79 Hgb 15.7 Hct 46.2 MCV 97 MCH 32.9 H MCHC 34.0 RDW 13.8 Plt Count 170 MPV 10.0 Neut % (Auto) Lymph % (Auto) [place] % (Auto) Eos % (Auto) Baso % (Auto) Absolute Neuts (auto) Absolute Lymphs (auto) PT INR APTT Sodium Potassium Chloride Carbon Dioxide Anion Gap BUN Creatinine Estimated GFR (MDRD) Glucose Calculated Osmolality Calcium Total Bilirubin AST ALT Alkaline Phosphatase Creatine Kinase 978 H CK-MB (CK-2) 94.6 H CK-MB (CK-2) Rel Index 9.7 H Troponin I 31.20 H* D Total Protein Albumin Triglycerides 272 H Cholesterol 208 H LDL Cholesterol, Calc 117.6 H VLDL Cholesterol, Calc 54.4 H HDL Cholesterol 36.0 L Cholesterol/HDL Ratio 5.8 Urine Opiates Screen Ur Oxycodone Screen Urine Methadone Screen Ur Barbiturates Screen Ur Tricyclics Screen Ur Phencyclidine Scrn Ur Amphetamines Screen U Methamphetamines Scrn Urine MDMA Screen U Benzodiazepines Scrn Urine Cocaine Screen Ur THC Screen
[2016-09-02 09:57] VITALS: BP 104/56; PULSE 75; TEMP 98.1
[2016-09-02] MEDS ORDERED: ENOXAPARIN 80 MG/0.8 ML PFS SQ SCH (10:00)
[2016-09-02] MEDS ORDERED: Enoxaparin 1 mg per kg per dose SQ SCH (10:00)
--- NOTE | 2016-09-02 11:00 | CAPUECHO ---
INDICATION: TROPONIN 1 ABNORMAL HEIGHT: 170.2 cm (5 ft 7.0 in) WEIGHT: 67.1 kg (148.0 lbs) BP: 126/78 BSA: 1.913062 m MEASUREMENTS 2D RVIDd: 2.2 cm LVOT Diam: 2.0 cm LA Diam: 4.2 cm EF Biplane: 64.27 % LAESV MOD A4C: 45.0 ml LAESV MOD A2C: 35.6 ml LAESV Index (A-L): 25.64 ml/m M-MODE IVSd: 1.1 cm LVIDd: 5.7* cm LVPWd: 0.9 cm LVIDs: 4.6 cm EF(Teich): 41 % Ao Diam: 2.9 cm LA Diam: 4.5 cm DOPPLER MV E Martin: 0.82 m/s MV A Martin: 0.60 m/s MV PHT: 45.79 ms MVA By PHT: 4.80 cm AV Vmax: 1.12 m/s TR Vmax: 2.74 m/s TR maxP mmHg RVSP: 41.08 mmHg FINDINGS ------- Procedure:2D images, m-mode, color and spectral Doppler were obtained and reviewed. Technically sub -optimal in some views. ECG rhythm:Sinus rhythm. Study quality:This was a technically adequate study; suboptimal in some views. Left Ventricle:The left ventricle is moderately dilated. . Left ventricular wall thickness is norm al. The posterior wall is akinetic. Estimate LVEF 40%. The diastolic filling pattern indicate s impaired relaxation. Right Ventricle:The right ventricle is normal in size and function. Left Atrium:The left atrium is moderately dilated. Right Atrium:The right atrium is normal in size and function. Aortic Valve:The aortic valve is trileaflet with commissural thickening, mild aortic valve sclero sis, good mobility, no regurgitation. Mitral Valve:Normal appearing mitral valve. [id number] mitral regurgitation is present, sec ondary to LV dilatation/dysfunction. MR PISA RF 23%. Tricuspid Valve:The tricuspid valve appears structurally normal. Mild tricuspid regurgitation pres ent. Pulmonic Valve:The pulmonic valve is normal. There is no pulmonic regurgitation present. Aorta:The aortic root, ascending aorta and aortic arch appear normal. IVC:Normal inferior vena cava with normal inspiratory collapse. Pericardium:There is no pericardial effusion. CONCLUSIONS 1. dilated left ventricle with posterior akinesis, EF 40% 2. moderate mitral regurgitation, secon laurie to #1, with moderate left atrial dilatation 3. normal right heart size/function, mild TR, mi ld elevation of pulm artery pressure suggested 4. aortic sclerosis. Electronically Signed By: Nakul Loya MD-- Electronically Signed On: 10:51:29
--- NOTE | 2016-09-02 14:48 | CAPUEKG ---
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 Little change from yesterday's tracing Abnormal ECG Electronically Signed On 09-02-16 14:47:10 EST by Nakul Loya [id number] [id number]
== END 2016-09-02 10:20 | disposition short-term general hospital (02) | DRG 280 ==
LOC: ED 19:25 → PCU 23:51 → OBSVTOIN 23:53
PROVIDERS: ADMIT Internal Medicine; ATTEND Hospitalist
DX: I21.4 Non-ST elevation (NSTEMI) myocardial infarction (principal); B20 Human immunodeficiency virus [HIV] disease; R11.14 Bilious vomiting; M25.512 Pain in left shoulder; J44.9 Chronic obstructive pulmonary disease, unspecified; E78.5 Hyperlipidemia, unspecified; E78.00 Pure hypercholesterolemia, unspecified; J45.909 Unspecified asthma, uncomplicated; F31.9 Bipolar disorder, unspecified; Z88.5 Allergy status to narcotic agent; Z79.899 Other long term (current) drug therapy; F17.210 Nicotine dependence, cigarettes, uncomplicated
CPT/HCPCS: 36415; 71010; 80053; 80061; 80307; 82550; 82553; 84484; 85025; 85027; 85610; 85730; 93005; 93306; 94640; 96372; 99284; 99406; G0378; J1650; J2405; J3490; J7620